=== PATIENT | male | born 1970 | race African-American/Black ===

== ENCOUNTER 2022-03-22 01:48 | Emergency (ER) | payer OTHER ==
[~2022-03-22] VITALS: Ht 177.8 cm; Wt 82.6 kg
[2022-03-22 02:05] VITALS: BP 123/93
== END 2022-03-22 03:39 | disposition left against medical advice (07) ==
LOC: ER 01:48
DX: Z53.21 Procedure and treatment not carried out due to patient leaving prior to being seen by health care provider (principal)

== ENCOUNTER 2022-06-28 05:00 | Emergency (ER) | payer OTHER ==
[~2022-06-28] VITALS: Ht 177.8 cm; Wt 87.0 kg
[2022-06-28 05:06] VITALS: BP 94/71
== END 2022-06-28 09:09 | disposition left against medical advice (07) ==
LOC: ER 05:00
DX: Z53.21 Procedure and treatment not carried out due to patient leaving prior to being seen by health care provider (principal); M25.551 Pain in right hip
CPT/HCPCS: 99281

== ENCOUNTER 2022-07-19 06:07 | Emergency (ER) | payer OTHER ==
[~2022-07-19] VITALS: Ht 177.8 cm; Wt 83.0 kg
[2022-07-19 06:11] VITALS: BP 145/95
== END 2022-07-19 07:40 | disposition left against medical advice (07) ==
LOC: ER 06:07
DX: Z53.21 Procedure and treatment not carried out due to patient leaving prior to being seen by health care provider (principal)